=== PATIENT | male | born 1945 | race Caucasian/White ===

== ENCOUNTER 2022-10-05 15:55 | Emergency (ER) | payer OTHER, BC ==
[~2022-10-05] VITALS: Ht 165.1 cm; Wt 65.8 kg
[2022-10-05 16:01] VITALS: BP 162/105
--- NOTE | 2022-10-05 16:07 | NUR ---
SPOKE TO ROSY, OF PATIENT, UPDATED HER ON PATIENTS CONDITION.
--- NOTE | 2022-10-05 16:41 | NUR ---
PATIENT BIBA TO 9.
--- NOTE | 2022-10-05 16:55 | NUR ---
77 YO MALE GRACE PRESENTS TO ED WITH LACERATION TO R SIDE OF HEAD. PATIENT RESIDES IN [facility], WHERE HE HAD A FALL AND HIT HIS HEAD. PATIENT BASELINE A/OX2
[2022-10-05 16:58] LABS: BASOPHILS # (AUTO) 0.1 K/uL (0.00-0.22); BASOPHILS % (AUTO) 0.7 % (0.0-2.0); EOSINOPHILS % (AUTO) 0.3 % (0.0-4.0); HEMATOCRIT 36.4 % (36-52); HEMOGLOBIN 12.1 g/dL (12.0-18.0); LYMPHOCYTES # (AUTO) 0.3 K/uL (2.0-11.5); MEAN CORPUSCULAR HEMOGLOBIN 29 pg (27-31); MEAN CORPUSCULAR HGB CONC 33 g/dL (33-37); MEAN CORPUSCULAR VOLUME 87.5 fL (80-94); MONOCYTES # (AUTO) 0.5 K/uL (0.8-1.0); MONOCYTES % (AUTO) 4.5 % (1.7-9.3); NEUTROPHILS # (AUTO) 9.8 K/uL (1.8-7.7); NEUTROPHILS % (AUTO) 91.5 % (42.2-75.2); PLATELET COUNT (AUTO) 333 K/uL (140-450); RED BLOOD CELL COUNT(AUTO) 4.16 MIL/uL (4.20-6.10); RED CELL DISTRIBUTION WIDTH 17.1 % (11.6-13.7); WHITE BLOOD COUNT (AUTO) 10.7 K/uL (4.8-10.8)
[2022-10-05 17:21] LABS: ALBUMIN 3.5 g/dL (3.4-5.0); ANION GAP 12.7 (8-16); ASPARTATE AMINOTRANSFERASE 21 U/L (15-37); CARBON DIOXIDE 31.9 mmol/L (21-32); CHLORIDE 99 mmol/L (98-107); CREATININE 1.3 mg/dL (0.6-1.3); GLUCOSE 119 mg/dL (74-106); POTASSIUM 3.6 mmol/L (3.5-5.1); SODIUM SERUM 140 mmol/L (136-145); TOTAL BILIRUBIN 0.6 mg/dL (0.0-1.0); UREA NITROGEN, BLOOD 21 mg/dL (7-18)
--- NOTE | 2022-10-05 19:35 | NUR ---
Patient resting in bed, A/Ox4, chest rise and fall symmetrical, no c/o pain or s/s of distress, patient on monitor. Addendum: 10/05/22 at 2105 by [email or web address] Patient resting in bed, A/Ox1, chest rise and fall symmetrical, no c/o pain or s/s of distress, patient on monitor.
--- NOTE | 2022-10-05 19:53 | NUR ---
Dr. Díaz examining patient.
--- NOTE | 2022-10-05 21:05 | NUR ---
Patient resting in bed, A/Ox1, chest rise and fall symmetrical, no c/o pain or s/s of distress, patient on monitor.
--- NOTE | 2022-10-05 22:32 | NUR ---
Patient resting in bed, A/Ox1, chest rise and fall symmetrical, no c/o pain or s/s of distress, patient on monitor. [facility] staff in charge, Med Tech Empress, informed of patient's condition, Med Tech Empress verbalized understanding and stated to "let them know when patient is going to be sent back."
--- NOTE | 2022-10-06 00:21 | NUR ---
Report given Charge Nurse Jerica MARIE. Charge Nurse Jerica RN verbalized understanding of report, no further questions.
--- NOTE | 2022-10-06 00:27 | NUR ---
REPORT RECEIVED FROM CYNTHIA SWEET. ASSUMED CARE AT THIS TIME.
--- NOTE | 2022-10-06 01:02 | NUR ---
Patient seen with eyes open. Patient appears to be resting comfortably in bed. Respirations even and unlabored.Visible chest rise and fall noted. all needs met at this time.
--- NOTE | 2022-10-06 04:02 | NUR ---
S/W ROSY, AND [facility], CAREGIVER TO PROVIDE UPDATE ON PT STATUS. PER , SHE WOULD LIKE TO BE NOTIFIED WHEN PT IS EN ROUTE BACK TO FACILITY [facility]- CAREGIVER -- [phone] -- ADDITIONAL CONTACT
--- NOTE | 2022-10-06 04:19 | NUR ---
PT BRIEF AND LINEN CHANGED. ALL NEEDS MET AT THIS TIME.
--- NOTE | 2022-10-06 04:25 | NUR ---
BP 179/65 NOTED. PT ASYMPTOMATIC. NO COMPLAINT OF PAIN. PT RESTING WITH VISIBLE CHEST RISE AND FALL.
--- NOTE | 2022-10-06 05:37 | NUR ---
BP IMPROVED, NOTED AT 155/80. PT REPOSITIONED AND RESTING.
--- NOTE | 2022-10-06 07:10 | NUR ---
Report and continuation of care received from CYNTHIA Ndiaye. Received patient resting in semi-fowlers position with cardiac nurse in place. Bed locked in lowest position, side rails x2 for pt safety. Denies pain at this time. All needs met.
--- NOTE | 2022-10-06 07:10 | NUR ---
HANDOFF REPORT GIVEN TO CYNTHIA BARKLEY. TRANSFER OF CARE AT THIS TIME.
--- NOTE | 2022-10-06 10:46 | NUR ---
Patient resting in position of comfort. groundwater monitoring technician in place. Bed locked in lowest position, side rails x 2.
--- NOTE | 2022-10-06 13:29 | NUR ---
[place] and orange juice given to patient per request. Completing meal at this time. fitter helper in place. Bed locked in lowest position, side rails x 2. Seizure pads remain in place. All needs met.
--- NOTE | 2022-10-06 13:37 | NUR ---
Transport team at bedside
[2022-10-06 13:55] VITALS: BP 162/83
--- NOTE | 2022-10-06 13:56 | NUR ---
Patient discharged with v/s stable. Written and verbal after care instructions given and explained. Patient verbalized understanding. Ambulatory via transporter/caregiver to detention. All questions addressed prior to discharge. Advised to follow up with PMD. Copies of RAD results given to patient.
== END 2022-10-06 13:56 | disposition home or self-care (01) ==
LOC: MED 15:55
DX: S01.91XA Laceration without foreign body of unspecified part of head, initial encounter (principal); R55 Syncope and collapse; F03.90 Unspecified dementia, unspecified severity, without behavioral disturbance, psychotic disturbance, mood disturbance, and anxiety; Z88.0 Allergy status to penicillin; Z88.8 Allergy status to other drugs, medicaments and biological substances; Z98.890 Other specified postprocedural states; W19.XXXA Unspecified fall, initial encounter; Y93.89 Activity, other specified; Y92.89 Other specified places as the place of occurrence of the external cause; Y99.8 Other external cause status
CPT/HCPCS: 36415; 70450; 72125; 73030; 80053; 84484; 85025; 93005; 99285